=== PATIENT | male | born 1945 | race African-American/Black ===

== ENCOUNTER → 2019-06-23 | Day surgery (SDC) | payer MEDICARE, MEDICAID ==
[~2019-06-23] VITALS: Ht 172.7 cm; Wt 79.4 kg
[~2019-06-23] MED LIST: ACETYLCHOLINE CHLORIDE INTRAOCULAR SOLUTION 1:100 ELECTROLYTE DILUENT IO ONE; ALFU10TA9 PO; ATOR20TA65 PO; BALANCED SALT IRRIG SOLN 15ML ONE; BALANCED SALT IRRIG SOLN COMB1 500ML OP NR; BUPIVACAINE HCL/PF 0.75% (7.5MG/ML) 10ML ONE; CIPROFLOXACIN 0.3% OPHTH SOLN 2.5ML ONE; FENTANYL CITRATE/PF 50MCG/ML 2ML VIAL ONE; FINA5TAB11 PO; GABA-533 PO; HYALURONATE SODIUM 14 MG/ML 0.85ML SYRINGE IO ONE; HYDROMORPHONE HCL/PF 2MG/ML CPJ IV PRN; LABETALOL HCL 5MG/ML VIAL 20ML IV PRN; LACTATED RINGERS 1,000 ML IV SCH; LIDOCAINE HCL 1% 20ML VIAL (Pyxis) INJ ONE; LIDOCAINE HCL 2%/EPINEPHRINE 1:100,000 20 ML VIAL INFIL ONE; LIDOCAINE HCL/PF 2% 20 MG/ML 10ML VIAL ONE; MEPERIDINE HCL/PF 25MG/ML CPJ IV PRN; METF1000 PO; MIDAZOLAM HCL 2 MG/2 ML VIAL ONE; ONDANSETRON HCL 4MG/2ML INJ IV PRN; PREDNISOLONE ACETATE 1% OPHTH DROPS 5ML ONE; PROPOFOL 200MG/20ML VIAL IV ONE; TETRACAINE 0.5% OPHTH DROPS 4ML ONE
== END | disposition home or self-care (01) ==
LOC: OR 08:09
PROVIDERS: ATTEND Ophthalmology
DX: E11.39 Type 2 diabetes mellitus with other diabetic ophthalmic complication (principal); H40.89 Other specified glaucoma; H42 Glaucoma in diseases classified elsewhere; J44.9 Chronic obstructive pulmonary disease, unspecified; I25.2 Old myocardial infarction; F41.9 Anxiety disorder, unspecified; E78.00 Pure hypercholesterolemia, unspecified; M19.90 Unspecified osteoarthritis, unspecified site; I10 Essential (primary) hypertension; N40.1 Benign prostatic hyperplasia with lower urinary tract symptoms; G47.30 Sleep apnea, unspecified; Z79.84 Long term (current) use of oral hypoglycemic drugs; Z79.899 Other long term (current) drug therapy; Z98.890 Other specified postprocedural states; Z88.0 Allergy status to penicillin; Z71.3 Dietary counseling and surveillance; Z71.82 Exercise counseling
CPT/HCPCS: 66170; 82962; J2250; J2704; J3010; J3490

== ENCOUNTER 2019-07-15 13:37 | Day surgery (SDC) | payer MEDICARE, MEDICAID ==
[~2019-07-15] VITALS: Ht 170.2 cm; Wt 80.0 kg
[~2019-07-15 13:37] MED LIST changes: -ACETYLCHOLINE CHLORIDE INTRAOCULAR SOLUTION 1:100 ELECTROLYTE DILUENT IO ONE; -BALANCED SALT IRRIG SOLN 15ML ONE; -BALANCED SALT IRRIG SOLN COMB1 500ML OP NR; -BUPIVACAINE HCL/PF 0.75% (7.5MG/ML) 10ML ONE; -CIPROFLOXACIN 0.3% OPHTH SOLN 2.5ML ONE; -FENTANYL CITRATE/PF 50MCG/ML 2ML VIAL ONE; -HYALURONATE SODIUM 14 MG/ML 0.85ML SYRINGE IO ONE; -HYDROMORPHONE HCL/PF 2MG/ML CPJ IV PRN; -LABETALOL HCL 5MG/ML VIAL 20ML IV PRN; -LACTATED RINGERS 1,000 ML IV SCH; -LIDOCAINE HCL 1% 20ML VIAL (Pyxis) INJ ONE; -LIDOCAINE HCL 2%/EPINEPHRINE 1:100,000 20 ML VIAL INFIL ONE; -LIDOCAINE HCL/PF 2% 20 MG/ML 10ML VIAL ONE; -MEPERIDINE HCL/PF 25MG/ML CPJ IV PRN; -MIDAZOLAM HCL 2 MG/2 ML VIAL ONE; -ONDANSETRON HCL 4MG/2ML INJ IV PRN; -PREDNISOLONE ACETATE 1% OPHTH DROPS 5ML ONE; -PROPOFOL 200MG/20ML VIAL IV ONE; -TETRACAINE 0.5% OPHTH DROPS 4ML ONE
[2019-07-15] MEDS ORDERED: TRIAMCINOLONE ACETONIDE 40MG/ML 1ML VIAL ONE ×2 (14:36→17:26)
[2019-07-15] MEDS ORDERED: ACETAZOLAMIDE SODIUM 500MG/VIAL IV ONE (15:45)
[2019-07-15 15:50] VITALS: BP 125/83
[2019-07-15] MEDS ORDERED: LIDOCAINE HCL 2%/EPINEPHRINE 1:100,000 20 ML VIAL INFIL ONE (16:30)
[2019-07-15] MEDS ORDERED: BALANCED SALT IRRIG SOLN 15ML ONE (16:30)
[2019-07-15] MEDS ORDERED: PREDNISOLONE ACETATE 1% OPHTH DROPS 5ML ONE (16:30)
[2019-07-15] MEDS ORDERED: CIPROFLOXACIN 0.3% OPHTH SOLN 2.5ML ONE (16:30)
[2019-07-15] MEDS ORDERED: BUPIVACAINE HCL/PF 0.75% (7.5MG/ML) 10ML ONE (16:30)
[2019-07-15] MEDS ORDERED: FENTANYL CITRATE/PF 50MCG/ML 2ML VIAL ONE (16:56)
[2019-07-15] MEDS ORDERED: MIDAZOLAM HCL 2 MG/2 ML VIAL ONE (16:57)
[2019-07-15] MEDS ORDERED: PROPOFOL 200MG/20ML VIAL IV ONE (16:58)
[2019-07-15] MEDS ORDERED: HYDROMORPHONE HCL/PF 2MG/ML CPJ IV PRN (17:45)
== END 2019-07-15 19:05 | disposition home or self-care (01) ==
LOC: ER 13:37 → OR 13:38 → ER 16:20 → OR 19:05 → ENRESERV 21:07 → CANBEDREQ 07-16 03:59
PROVIDERS: ATTEND Ophthalmology
DX: H59.89 Other postprocedural complications and disorders of eye and adnexa, not elsewhere classified (principal); H54.62 Unqualified visual loss, left eye, normal vision right eye; E11.39 Type 2 diabetes mellitus with other diabetic ophthalmic complication; J44.9 Chronic obstructive pulmonary disease, unspecified; I10 Essential (primary) hypertension; Z98.890 Other specified postprocedural states; Z87.891 Personal history of nicotine dependence; Z79.84 Long term (current) use of oral hypoglycemic drugs; Z79.899 Other long term (current) drug therapy; Z88.0 Allergy status to penicillin; Y84.8 Other medical procedures as the cause of abnormal reaction of the patient, or of later complication, without mention of misadventure at the time of the procedure; Y92.89 Other specified places as the place of occurrence of the external cause
CPT/HCPCS: 66250; 93005; J1120; J2250; J2704; J3010; J3301; J3490

== ENCOUNTER 2019-08-18 10:08 | Day surgery (SDC) | payer MEDICARE, MEDICAID ==
[2019-08-18] MEDS ORDERED: LACTATED RINGERS 1,000 ML IV SCH (11:50)
[2019-08-18 12:13] LABS: HEMATOCRIT. 39.5 % (42.0-52.0); HEMOGLOBIN. 12.5 g/dL (14.0-18.0); MEAN CORPUSCULAR HEMOGLOBIN 27.2 pg (28.0-32.0); MEAN CORPUSCULAR VOLUME 85.7 fL (80.0-94.0); MEAN PLATELET VOLUME 8.6 fl (7.4-10.4); PLATELET 143 x1000/uL (130-400); RED BLOOD CELL COUNT 4.61 mill/uL (4.7-6.1); RED CELL DISTRIBUTION WIDTH 14.4 % (11.6-14.6)
[2019-08-18 12:20] LABS: CHLORIDE 108 mEq/L (98-107)
[2019-08-18] MEDS ORDERED: TRIAMCINOLONE ACETONIDE 40MG/ML 1ML VIAL ONE (12:54)
[2019-08-18] MEDS ORDERED: FENTANYL CITRATE/PF 50MCG/ML 2ML VIAL ONE (12:56)
[2019-08-18] MEDS ORDERED: PROPOFOL 200MG/20ML VIAL IV ONE (12:56)
[2019-08-18] MEDS ORDERED: TRYPAN BLUE 0.5 ML DISP.SYRIN IO ONE (12:56)
[2019-08-18] MEDS ORDERED: MIDAZOLAM HCL 2 MG/2 ML VIAL ONE (12:56)
[2019-08-18] MEDS ORDERED: KETOROLAC 30MG/ML VIAL ONE (14:01)
[2019-08-18] MEDS ORDERED: TETRACAINE 0.5% OPHTH DROPS 4ML ONE (14:55)
[2019-08-18] MEDS ORDERED: BUPIVACAINE HCL/PF 0.75% (7.5MG/ML) 10ML ONE (14:55)
[2019-08-18] MEDS ORDERED: BALANCED SALT IRRIG SOLN 15ML ONE (14:55)
[2019-08-18] MEDS ORDERED: PREDNISOLONE ACETATE 1% OPHTH DROPS 5ML ONE (14:55)
[2019-08-18] MEDS ORDERED: LIDOCAINE HCL 2%/EPINEPHRINE 1:100,000 20 ML VIAL INFIL ONE (14:55)
[2019-08-18] MEDS ORDERED: CIPROFLOXACIN 0.3% OPHTH SOLN 2.5ML ONE (14:55)
[2019-08-18 16:48] LABS: PLATELET ESTIMATE NORMAL
== END 2019-08-18 15:00 | disposition home or self-care (01) ==
LOC: OR 10:08
PROVIDERS: ATTEND Ophthalmology
DX: E11.39 Type 2 diabetes mellitus with other diabetic ophthalmic complication (principal); H40.89 Other specified glaucoma; J44.9 Chronic obstructive pulmonary disease, unspecified; I25.2 Old myocardial infarction; I25.10 Atherosclerotic heart disease of native coronary artery without angina pectoris; I10 Essential (primary) hypertension; F41.9 Anxiety disorder, unspecified; E78.00 Pure hypercholesterolemia, unspecified; M19.90 Unspecified osteoarthritis, unspecified site; N40.1 Benign prostatic hyperplasia with lower urinary tract symptoms; G47.30 Sleep apnea, unspecified; Z88.0 Allergy status to penicillin; Z79.899 Other long term (current) drug therapy; Z79.84 Long term (current) use of oral hypoglycemic drugs; Z87.891 Personal history of nicotine dependence; Z98.890 Other specified postprocedural states; Z71.3 Dietary counseling and surveillance; Z71.82 Exercise counseling
CPT/HCPCS: 36415; 66179; 66250; 80048; 82962; 85025; 93005; C1783; J1885; J2250; J2704; J3010; J3490; J3301; Q9957